=== PATIENT | female | born 1975 | race Caucasian/White ===

== ENCOUNTER 2019-01-27 16:12 | Emergency (ER) | payer OTHER ==
[~2019-01-27] VITALS: Ht 177.8 cm; Wt 81.6 kg
[~2019-01-27 16:12] MED LIST: BENADRYL25 MG PO; MEDROL4 MG PO; PERCOCET 5/3251 TAB PO; SYNTHROID50 MCG
== END 2019-01-27 21:47 | disposition home or self-care (01) ==
LOC: ER 16:12
DX: D25.9 Leiomyoma of uterus, unspecified (principal); N93.8 Other specified abnormal uterine and vaginal bleeding

== ENCOUNTER 2023-02-05 19:32 | Emergency (ER) | payer OTHER ==
[~2023-02-05] VITALS: Ht 175.3 cm; Wt 89.8 kg
== END 2023-02-06 00:12 | disposition home or self-care (01) ==
LOC: ER 19:32
PROVIDERS: General Practice
DX: T50.995A Adverse effect of other drugs, medicaments and biological substances, initial encounter (principal); Z88.0 Allergy status to penicillin; Z88.2 Allergy status to sulfonamides; Z87.898 Personal history of other specified conditions